=== PATIENT | female | born 1940 | race African-American/Black ===

== ENCOUNTER 2016-09-12 08:19 | Day surgery (SDC) | payer OTHER ==
--- NOTE | ~2016-09-12 | EGD ---
EGD REPORT [facility] [address] [address] NAME: MARCELA LEY : 36 STATUS : REG [facility]#: [id number] AGE: 75 ADM/REG DATE : 09/12/16 MR#: [id number] REPORT SERV DATE: 09/12/16 DICTATED BY: JADON KEENAN DATE: 09/12/16 REPORT STATUS : Draft TRANSCRIBED BY: [employer] DATE: 09/12/16 Endoscopy Center Patient Name: Marcela Ley Date of : 1940 Attending MD: JADON KEENAN MD Procedure Date No Time: 09/12/2016 Procedure: Colonoscopy Indications: Hematochezia, Last colonoscopy: March 2014 Referring MD: MAURILIO WOOTEN MD Medicines: See the Anesthesia note for documentation of the administered medications Complications: No immediate complications. Procedure: Pre-Anesthesia Assessment: - ASA Grade Assessment: IV - A patient with severe systemic disease that is a constant threat to life. After I obtained informed consent, the scope was passed under direct vision. Throughout the procedure, the patient's blood pressure, pulse, and oxygen saturations were monitored continuously. The PCF [id number] was introduced through the anus and advanced to the ileocolonic anastomosis. The colonoscopy was performed without difficulty. The patient tolerated the procedure well. The quality of the bowel preparation was adequate. Findings: The perianal and digital rectal examinations were normal. The terminal ileum appeared normal. Diverticula were found in the sigmoid colon and in the transverse colon. Internal hemorrhoids were found during retroflexion and were medium-sized. A sessile polyp was found in the descending colon. The polyp was 10 mm in size. The polyp was removed with a hot snare. Resection and retrieval were complete. 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 Impression: - The examined portion of the ileum was normal. - Diverticulosis in the sigmoid colon and in the transverse colon. - Internal hemorrhoids. - One 10 mm polyp in the descending colon. Resected and retrieved. 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 [address] NAME: MARCELA LEY : 36 STATUS : [place] [facility] [id number] AGE: 75 ADM/REG DATE : 09/12/16 MR#: [id number] REPORT SERV DATE: 09/12/16 DICTATED BY: JADON KEENAN DATE: 09/12/16 REPORT STATUS : Draft TRANSCRIBED BY: [employer] DATE: 09/12/16 emergencies. The signs and symptoms of potential delayed complications were discussed with the patient. Return to normal activities tomorrow. Written discharge instructions were provided to the patient. - Regular diet. - Continue present medications. - Repeat colonoscopy for surveillance based on pathology results. - Keep stools soft: use colace and or Benefiber Office visit in [address] Keenan or his ROUTE DRIVER. IF bleeding not improved, Flex sigm with further APC Procedure Code(s): --- Professional --- 17337, Colonoscopy, flexible, proximal to splenic flexure; with ablation of tumor(s), polyp(s), or other lesion(s) not amenable to removal by hot biopsy forceps, bipolar cautery or snare technique 69841, 59, Colonoscopy, flexible, proximal to splenic flexure; with removal of tumor(s), polyp(s), or other lesion(s) by snare technique Diagnosis Code(s): --- Professional --- K64.8, Other hemorrhoids K57.30, Diverticulosis of large intestine without perforation or abscess without bleeding D12.4, Benign neoplasm of descending colon K92.1, Melena CPT copyright 2013 [employer]. All rights reserved. The codes documented in this report are preliminary and upon hims coder review may be revised to meet current compliance requirements. Jadon Keenan MD JADON KEENAN MD 09/12/2016 10:30 AM This report has been signed electronically. Number of Addenda: 0 Note Initiated On: 09/12/2016 9:51 AM Scope Withdrawal Time 0 hours 10 minutes 42 seconds [address] [place] [address]
--- NOTE | ~2016-09-12 | EGD ---
EGD REPORT [facility] [address] [address] NAME: MARCELA LEY : [birth year] STATUS : REG [facility]#: [id number] AGE: 75 ADM/REG DATE : 09/12/16 MR#: [id number] REPORT SERV DATE: 09/12/16 DICTATED BY: JADON KEENAN DATE: 09/12/16 REPORT STATUS : Draft [facility]ANSCRIBED BY: [facility] DATE: 09/12/16 Endoscopy Center Patient Name: Marcela Ley Date of : 1940 Attending MD: JADON KEENAN MD Procedure Date No Time: 09/12/2016 Procedure: Upper GI endoscopy Indications: Anemia, Weight loss Referring MD: MAURILIO WOOTEN MD Medicines: See the Anesthesia note for documentation of the administered medications Complications: No immediate complications. Procedure: Pre-Anesthesia Assessment: - ASA Grade Assessment: IV - A patient with severe systemic disease that is a constant threat to life. After obtaining informed consent, the endoscope was passed under direct vision. Throughout the procedure, the patient's blood pressure, pulse, and oxygen saturations were monitored continuously. The GIF H190 [id number] was introduced through the mouth, and advanced to the second part of duodenum. The upper GI endoscopy was accomplished without difficulty. The patient tolerated the procedure well. Findings: The 2nd part of the duodenum was normal. Biopsies were taken with a cold forceps for histology. Mild inflammation was found in the gastric antrum. Biopsies were taken with a cold forceps for histology. The cardia and gastric fundus were normal on retroflexion. A small hiatus hernia was present. A non-obstructing Schatzki ring (acquired) was found at the gastroesophageal junction. Impression: - Normal 2nd part of the duodenum. Biopsied. - Gastritis. Biopsied. - Hiatus hernia. - Non-obstructing Schatzki ring. Recommendation: - Patient has a contact number available for emergencies. The signs and symptoms of potential delayed complications were discussed with the patient. Return to normal activities tomorrow. Written discharge instructions were provided to the patient. - Regular diet. EGD REPORT [address] [address] NAME: MARCELA LEY : [birth year] STATUS : REG [facility]#: [id number] AGE: 75 ADM/REG DATE : 09/12/16 MR#: [id number] REPORT SERV DATE: 09/12/16 DICTATED BY: JADON KEENAN DATE: 09/12/16 REPORT STATUS : Draft TRANSCRIBED BY: [employer] DATE: 09/12/16 - Continue present medications. - FOR YOUR BIOPSY RESULTS: Please go to [email or web address] and register to receive your results via the portal. Your biopsy results will be posted there in about 7 to 10 days. IF you do not see result in 10 days, call office. Procedure Code(s): --- Professional --- 57099, Esophagogastroduodenoscopy, flexible, transoral; with biopsy, single or multiple Diagnosis Code(s): --- Professional --- K29.70, Gastritis, unspecified, without bleeding K44.9, Diaphragmatic hernia without obstruction or gangrene K22.2, Esophageal obstruction D64.9, Anemia, unspecified R63.4, Abnormal weight loss CPT copyright 2013 [employer]. All rights reserved. The codes documented in this report are preliminary and upon device sales consultant review may be revised to meet current compliance requirements. Jadon Keenan MD JADON KEENAN MD 09/12/2016 10:09 AM This report has been signed electronically. Number of Addenda: 0 Note Initiated On: 09/12/2016 9:54 AM Scope Withdrawal Time 0 hours 0 minutes 0 seconds [address] [id number]
[~2016-09-12 08:19] MED LIST: ACCO20 PO; ADVAIR INH; ADVAIR250 INH; ANOROELLIPTA INH; ARNUITY ELLIP100 MCG INH; ASAB PO; CARD30 PO; COMBIVENT INH; COMP10B PO; DALIRESP500 MCG PO; DIOVAN HCT160 MG/25 PO; FERROUS SULF325 M1 PO; FISH-EPA1000 MG PO; FOLIC ACID400 MC1 PO; LAN125 PO; MULTIPLE VIT PO; PCET PO; PREDFORTE OPH; PROFERRIN ES12 MG PO; REM15 PO; SPIRIVA INH; V120 PO; VENTOLIN HFA INH; VITAMIN C100 MG PO; VITAMIN D1000 UNI1 PO; VITC500 PO; ZESTORETIC1 TA1 PO
== END 2016-09-12 23:59 | disposition home or self-care (01) ==
LOC: DMU 08:19
PROVIDERS: Internal Medicine Gastroenterology
PROC: 0DB68ZX Excision of Stomach, Via Natural or Artificial Opening Endoscopic, Diagnostic (ICD-10-PCS; 2016-09-12)
PROC: 0DBM8ZZ Excision of Descending Colon, Via Natural or Artificial Opening Endoscopic (ICD-10-PCS; principal; 2016-09-12 10:00)
PROC: 0DB98ZX Excision of Duodenum, Via Natural or Artificial Opening Endoscopic, Diagnostic (ICD-10-PCS; 2016-09-12 10:00)
DX: K29.50 Unspecified chronic gastritis without bleeding (principal); D12.4 Benign neoplasm of descending colon; K57.30 Diverticulosis of large intestine without perforation or abscess without bleeding; K64.8 Other hemorrhoids; K44.9 Diaphragmatic hernia without obstruction or gangrene; K22.2 Esophageal obstruction; I78.1 Nevus, non-neoplastic; I10 Essential (primary) hypertension; I49.3 Ventricular premature depolarization; J44.9 Chronic obstructive pulmonary disease, unspecified; F17.210 Nicotine dependence, cigarettes, uncomplicated; Z90.49 Acquired absence of other specified parts of digestive tract; Z85.42 Personal history of malignant neoplasm of other parts of uterus; Z92.21 Personal history of antineoplastic chemotherapy; Z88.2 Allergy status to sulfonamides; Z88.0 Allergy status to penicillin; Z88.5 Allergy status to narcotic agent; Z79.82 Long term (current) use of aspirin; Z79.51 Long term (current) use of inhaled steroids; Z79.899 Other long term (current) drug therapy; Z90.710 Acquired absence of both cervix and uterus; Z90.722 Acquired absence of ovaries, bilateral; Z98.49 Cataract extraction status, unspecified eye; Z98.890 Other specified postprocedural states
CPT/HCPCS: 88305